=== PATIENT | female | born 1965 | race Caucasian/White ===

== ENCOUNTER 2019-02-16 15:23 | Outpatient (CLI) | payer BC ==
--- NOTE | 2019-02-16 15:45 | RAD ---
EXAM: 4 views of the lumbosacral spine HISTORY: Low back pain COMPARISON: None FINDINGS: 4 views of the lumbosacral spine shows normal height and alignment of the vertebral bodies and intervertebral discs without fracture or subluxation. Alignment is unchanged with flexion and extension. No significant degenerative changes are seen. The sacroiliac joints are unremarkable. IMPRESSION: No significant lumbar spine abnormality.
== END 2019-02-16 15:24 | disposition home or self-care (01) ==
LOC: TBSIIMAG 15:23
PROVIDERS: ATTEND Surgery
DX: M54.5 Low back pain (principal)
CPT/HCPCS: 72110